=== PATIENT | male | born 1995 | race Caucasian/White ===

== ENCOUNTER 2017-11-14 17:16 | Emergency (ER) | payer OTHER ==
[~2017-11-14] VITALS: Wt 81.6 kg
== END 2017-11-14 19:12 | disposition home or self-care (01) ==
LOC: ED 17:16
DX: S46.812A Strain of other muscles, fascia and tendons at shoulder and upper arm level, left arm, initial encounter (principal); Z88.0 Allergy status to penicillin; X58.XXXA Exposure to other specified factors, initial encounter; Y93.89 Activity, other specified; Y92.89 Other specified places as the place of occurrence of the external cause; Y99.8 Other external cause status

== ENCOUNTER 2017-12-11 12:00 | Emergency (ER) | payer OTHER ==
[~2017-12-11] VITALS: Ht 177.8 cm; Wt 81.6 kg
== END 2017-12-11 15:05 | disposition home or self-care (01) ==
LOC: ED 12:00
DX: S90.31XA Contusion of right foot, initial encounter (principal); Z88.0 Allergy status to penicillin; X50.1XXA Overexertion from prolonged static or awkward postures, initial encounter; Y93.89 Activity, other specified; Y92.69 Other specified industrial and construction area as the place of occurrence of the external cause; Y99.9 Unspecified external cause status

== ENCOUNTER 2018-01-30 17:29 | Emergency (ER) | payer BC ==
[~2018-01-30] VITALS: Ht 177.8 cm; Wt 88.5 kg
[2018-01-30 17:53] LABS: BASO % 0.2 % (0.0-1.0); EOS % 0.2 % (1.0-4.0); HEMATOCRIT 40.6 % (42.0-52.0); HEMOGLOBIN 13.9 g/dl (14.0-18.0); LYMPH # 1.6 10*3/uL (1.3-4.4); LYMPH % 13.1 % (27.0-41.0); MEAN CELL VOLUME 81.5 fl (80.0-94.0); MEAN CORPUSCULAR HGB 27.9 pg (27.0-31.0); MEAN CORPUSCULAR HGB CONC 34.2 g/dl (33.0-37.0); MEAN PLATELET VOLUME 9.6 fl (9.6-12.3); MONO # 1.2 10*3/uL (0.1-1.0); MONO % 9.5 % (3.0-9.0); NEUT # 9.6 10*3/uL (2.3-7.9); NEUT % 76.6 % (47.0-73.0); PLATELET COUNT AUTOMATED 213 10*3/uL (130-400); RED BLOOD COUNT 4.98 10*6/uL (4.50-5.90); WHITE BLOOD COUNT 12.6 10*3/uL (4.8-10.8)
[2018-01-30 18:05] LABS: ACT PARTIAL THROMBO TIME 22.1 SECONDS (20.8-31.5); INTERNATIONAL NORM RATIO 1.2 (2.0-3.5)
[2018-01-30 18:16] LABS: ALBUMIN 4.6 gm/dl (3.1-4.5); ALKALINE PHOSPHATASE 70 U/L (45-117); BUN 12 mg/dl (7-24); CHLORIDE 107 mmol/L (98-107); CREATININE 1.03 mg/dL (0.70-1.30); POTASSIUM 2.9 mmol/L (3.5-5.1); SGOT/AST 26 IU/L (3-35); SGPT/ALT 23 U/L (12-78); SODIUM 140 mmol/L (136-145); TOTAL PROTEIN 7.5 gm/dL (6.4-8.2)
[2018-01-30 18:18] LABS: TROPONIN I < 0.015 ng/ml (<0.045)
[2018-01-30] MEDS ORDERED: K-TAB20 MEQ PO (19:20)
== END 2018-01-30 19:26 | disposition home or self-care (01) ==
LOC: ED 17:29
PROVIDERS: Emergency Medicine
DX: E87.6 Hypokalemia (principal); Z88.0 Allergy status to penicillin

== ENCOUNTER 2018-04-25 16:35 | Emergency (ER) | payer OTHER, BC ==
[~2018-04-25] VITALS: Ht 180.3 cm; Wt 81.6 kg
--- NOTE | ~2018-04-25 | EKG ---
[place], [place] ELECTROCARDIOGRAM REPORT NAME: VASU FRANCO III UNIT #: [id number] ROOM: DOCTOR: EPIPHANY DRAFT REPORT BIRTHDATE: [birth year] [facility] Test Date: 2018-04-25 Test Time: 16:59:07 Pat Name: VASU FRANCO Department: Room: Gender: M Sales Floor Manager: [facility] : 1995 Requested By: SAM BRITTON Order Number: [id number] Reading MD: Travis Justice MD Measurements Intervals Hines Rate: 80 P: 34 NC: 164 QRS: 35 QRSD: 86 T: 21 QT: 355 QTc: 410 Interpretive Statements Sinus rhythm ST elev, probable normal early repolarization pattern Electronically Signed On 04-27-2018 9:31:02 PDT by Travis Justice MD CM:EKGRPT:ELECTROCARDIOGRAM REPORT [id number] SAM WINTER DRAFT REPORT SAM BRITTON M.D.
[~2018-04-25 16:35] MED LIST: K-TAB20 MEQ PO
[2018-04-25 17:06] LABS: BASO % 0.5 % (0.0-1.0); EOS # 0.1 10*3/uL (0.0-0.4); EOS % 1.2 % (1.0-4.0); HEMATOCRIT 42.9 % (42.0-52.0); HEMOGLOBIN 14.4 g/dl (14.0-18.0); LYMPH # 2.1 10*3/uL (1.3-4.4); LYMPH % 23.4 % (27.0-41.0); MEAN CELL VOLUME 84.3 fl (80.0-94.0); MEAN CORPUSCULAR HGB 28.3 pg (27.0-31.0); MEAN CORPUSCULAR HGB CONC 33.6 g/dl (33.0-37.0); MONO # 0.9 10*3/uL (0.1-1.0); MONO % 9.9 % (3.0-9.0); NEUT # 5.8 10*3/uL (2.3-7.9); NEUT % 64.9 % (47.0-73.0); PLATELET COUNT AUTOMATED 206 10*3/uL (130-400); RED BLOOD COUNT 5.09 10*6/uL (4.50-5.90); RED CELL DISTRI WIDTH 12.6 % (0-14.5); WHITE BLOOD COUNT 8.9 10*3/uL (4.8-10.8)
[2018-04-25 17:15] LABS: ACT PARTIAL THROMBO TIME 23.1 SECONDS (20.8-31.5); INTERNATIONAL NORM RATIO 1.2 (2.0-3.5)
[2018-04-25 17:24] LABS: ALBUMIN 4.5 gm/dl (3.1-4.5); ALKALINE PHOSPHATASE 63 U/L (45-117); BUN 12 mg/dl (7-24); CHLORIDE 105 mmol/L (98-107); CREATININE 1.23 mg/dL (0.70-1.30); POTASSIUM 3.6 mmol/L (3.5-5.1); SGOT/AST 21 IU/L (3-35); SGPT/ALT 24 U/L (12-78); SODIUM 140 mmol/L (136-145); TOTAL PROTEIN 7.4 gm/dL (6.4-8.2)
[2018-04-25 17:26] LABS: TROPONIN I < 0.015 ng/ml (<0.045)
== END 2018-04-25 18:45 | disposition home or self-care (01) ==
LOC: ED 16:35
PROVIDERS: Emergency Medicine
DX: S29.011A Strain of muscle and tendon of front wall of thorax, initial encounter (principal); Z88.0 Allergy status to penicillin; X50.0XXA Overexertion from strenuous movement or load, initial encounter; Y93.89 Activity, other specified; Y92.69 Other specified industrial and construction area as the place of occurrence of the external cause; Y99.9 Unspecified external cause status

== ENCOUNTER 2021-05-09 13:27 | Emergency (ER) | payer BC ==
[~2021-05-09] VITALS: Wt 95.3 kg
[2021-05-09] MEDS ORDERED: NAPROSYN500 MG PO (15:05)
== END 2021-05-09 15:19 | disposition home or self-care (01) ==
LOC: ED 13:27
DX: M25.512 Pain in left shoulder (principal); Z88.0 Allergy status to penicillin; X58.XXXA Exposure to other specified factors, initial encounter; Y93.89 Activity, other specified; Y92.89 Other specified places as the place of occurrence of the external cause; Y99.8 Other external cause status

== ENCOUNTER 2023-10-06 21:16 | Emergency (ER) | payer OTHER ==
[~2023-10-06] VITALS: Ht 177.8 cm; Wt 102.1 kg
[~2023-10-06 21:16] MED LIST changes: +NAPROSYN500 MG PO
[2023-10-06] MEDS ORDERED: MELOXICAM15 MG PO (23:24)
== END 2023-10-06 23:50 | disposition home or self-care (01) ==
LOC: ED 21:16
DX: S43.402A Unspecified sprain of left shoulder joint, initial encounter (principal); F31.9 Bipolar disorder, unspecified; Z88.0 Allergy status to penicillin; X50.0XXA Overexertion from strenuous movement or load, initial encounter; Y93.89 Activity, other specified; Y92.89 Other specified places as the place of occurrence of the external cause; Y99.0 Civilian activity done for income or pay

== ENCOUNTER 2025-01-06 12:28 | Emergency (ER) | payer OTHER ==
[~2025-01-06] VITALS: Wt 104.3 kg
[~2025-01-06 12:28] MED LIST changes: +MELOXICAM15 MG PO
== END 2025-01-06 18:14 | disposition home or self-care (01) ==
LOC: ED 12:28
DX: S60.212A Contusion of left wrist, initial encounter (principal); Z88.0 Allergy status to penicillin; W22.8XXA Striking against or struck by other objects, initial encounter; Y93.89 Activity, other specified; Y92.89 Other specified places as the place of occurrence of the external cause; Y99.0 Civilian activity done for income or pay